=== PATIENT | male | born 1955 | race Caucasian/White ===

== ENCOUNTER 2023-06-27 14:18 | Outpatient (AMB) | payer MEDICARE, OTHER, SELFPAY ==
--- NOTE | 2023-06-27 14:53 | MHC.OFFWIV ---
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 Patient has history of this dosing using his ears cleaned every Once in a while denies other symptoms Review of Systems Const All systems reviewed & are unremarkable except as noted in HPI and below ENT Details: ear fullness Physical Exam Vital Signs: Last Vital Signs Pulse 60 06/27/23 14:55 BP 110/72 06/27/23 14:55 Pulse Ox 96 06/27/23 14:55 Oxygen Delivery Method Room Air 06/27/23 14:55 BMI result Body Mass Index 25.0 HEENT Other: unable to visualize TM cerumen impacted bilaterally Assessment & Plan Assessment & Plan (1) Cerumen impaction: Code(s): H61.20 - Impacted cerumen, unspecified ear Qualifiers: Laterality: bilateral Qualified Code(s): H61.23 - Impacted cerumen, bilateral Plan cerumen impaction bilaterally. Ears flushed TMs reassessed and able to visualize patient with improvement. Discharge instructions, follow up and treatment are discussed with patient in my usual fashion. Alternatives in treatment are also discussed. The patient will return for worsening symptoms or as needed. Advised that any labs/imaging ordered will be followed up on and contact made if further treatment needed. Counseled that patient's condition may require further evaluation and/or treatment. Symptoms of concern for worsening disorder discussed in detail in my customary manner. Patient does verbalize understanding of the plan, there are no apparent barriers to communication. The patient is given the opportunity to ask questions and have them answered to his/her satisfaction Coding Level of Care Code New Pt Level 4 (83948) Diagnoses Bilateral impacted cerumen H61.23 Laterality: bilateral
[2023-06-27 14:55] VITALS: BP 110/72; PULSE 60; O2SAT 96; BMI 25.0
== END 2023-06-27 15:15 | disposition home or self-care (01) ==
PROVIDERS: Visit Provider Physician Assistant
DX: H61.23 Impacted cerumen, bilateral (principal)
CPT/HCPCS: 99204

== ENCOUNTER 2023-07-24 14:20 | Emergency (ER) | payer MEDICARE, OTHER, SELFPAY ==
--- NOTE | ~2023-07-24 | XR_ITS ---
EXAMINATION: XR CHEST CLINICAL INFORMATION: Dyspnea COMPARISON: None available. TECHNIQUE: Frontal view of the chest was obtained. FINDINGS: Lungs grossly clear given portable technique. Heart size normal with normal caliber pulmonary vessels. No evidence for congestive failure. Sternal wires present. Advanced degenerative changes in both shoulder joints. Chronic resorptive change in the right AC joint. XR/XR chest 1V IMPRESSION: No active disease.
[2023-07-24 14:27] VITALS: BP 100/80; BP 117/72; PULSE 70; PULSE 73; RESP 18; TEMP 36.6; O2SAT 96; O2SAT 97; BMI 24.1
--- NOTE | 2023-07-24 14:35 | ECG_ITS ---
Test Reason : DYSPNEA Blood Pressure : / mmHG Vent. Rate : 068 BPM Atrial Rate : 068 BPM P-R Int : 142 ms QRS Dur : 084 ms QT Int : 396 ms P-R-T Axes : 052 017 011 degrees QTc Int : 421 ms Normal sinus rhythm Normal ECG No previous ECGs available Referred By: Becca Vargas Electronically Signed By:DELMI JEAN
--- NOTE | 2023-07-24 14:36 | ED_ITS ---
HPI - URI/Sore Throat General Chief Complaint: Upper Respiratory Symptoms Stated Complaint: +COVID,DIFF BREATHING Time Seen by Provider: 07/24/23 14:22 Source: patient Mode of arrival: EMS Limitations: no limitations History of Present Illness HPI Narrative: 68 yo male with PMH of HTN, s/p valve replacement, afib on eliquis, HLD here with c/o having a cold for many weeks with cough, runny nose, itchy eyes his told him to take a covid test though no real change in symptoms and he was positive two days ago. He has no fevers, chest pain or trouble breathing. He is not on paxlovid he has had 5 COVID shots. His home O2 reader without symptoms showed a sat of 89% around 1230pm today and his doctor told him to get checked out. EMS found patient 96% RA. MD elicited complaint: other (low O2) Pertinent past history: other Onset (ago): hour(s) (1230pm) Consistency: improved Severity: mild Description of mucous: clear Able to tolerate fluids by mouth: Yes Exacerbating factors: nothing Relieving factors: nothing Associated symptoms: denies other symptoms Treatments prior to arrival: none Related Data Home Medications Medication Instructions Recorded Confirmed amlodipine 10 mg tablet 10 mg PO DAILY 06/27/23 apixaban 5 mg tablet (Eliquis) 5 mg PO BID 06/27/23 aspirin 81 mg tablet,delayed 81 mg PO DAILY 06/27/23 release atorvastatin 80 mg tablet 80 mg PO DAILY 06/27/23 lisinopril 40 mg tablet 40 mg PO DAILY 06/27/23 metoprolol succinate 50 mg 50 mg PO DAILY 06/27/23 tablet,extended release 24 hr Allergies Allergy/AdvReac Type Severity Reaction Status Date / Time heparin AdvReac Severe Unknown Verified 07/24/23 14:31 amiodarone AdvReac Mild Unknown Verified 07/24/23 14:31 Review of Systems 2 Review of Systems: Constitutional : No Fever, No Chills ENT/Mouth : No sore throat, pos Rhinorrhea, No Swallowing Difficulty Eyes: No Eye Pain, No Swelling, No Redness Cardiovascular : No Chest Pain, no SOB, No Orthopnea, no Edema Respiratory : pos Cough, No Sputum, No Wheezing, no dyspnea Gastrointestinal : No Nausea, No Vomiting, No Diarrhea, No abdominal Pain, No Hematochezia, No Melena Genitourinary : No Dysuria, No Urinary Frequency, No Hematuria Musculoskeletal : No joint pain, No Myalgias Skin : No Skin Lesions, No rash Neuro : No Weakness, No Numbness, No Dizziness, No Headache Psych : No Anxiety/Panic, No Depression All other systems reviewed and are negative [facility] Past Medical History Attestation statement: The following information was validated with the patient. Source: old records reviewed Medical History HTN (hypertension) Social History Social History Patient Tobacco Use Status: Never used Tobacco Advance Directives: No Physical Exam 2 Vital Signs: Vital Signs: Last Vital Signs Temp 97.8 F 07/24/23 14:27 Pulse 73 07/24/23 14:27 Resp 18 07/24/23 14:27 BP 117/72 07/24/23 14:27 Pulse Ox 97 07/24/23 14:27 O2 Del Method Room Air 07/24/23 14:27 BMI result Body Mass Index 24.1 Appearance: Alert. Oriented X3. No acute distress. Eyes: Pupils equal, round and reactive to light. ENT: Pharynx normal. Neck: Normal inspection. Neck supple. CVS: Normal heart rate and rhythm. Pulses normal. Respiratory: No respiratory distress. Breath sounds normal. Abdomen: Soft and nontender. Skin: Skin warm and dry. Normal skin color. Normal skin turgor. Extremities: No lower extremity edema. No calf ttp Neuro: Oriented X 3. No motor deficit. No sensory deficit. Course Course Course Narrative: 96-98% on RA with ambulation trial Medical Decision Making Medical Decision Making MDM Narrative: 68 yo male with PMH of HTN, s/p valve replacement, afib on eliquis, HLD here with URI symptoms for weeks and off handedly took a COVID test without sig change in symptoms so there is no known real window. He has no CP/SOB edema and he is already on DOAC. At home reading said 89% without symptoms but EMS and here he is 96%. He is not toxic and has clear lungs - will obtain basic labs, EKG and CXR I suspect he will not be hypoxic here and will do ambulation trial. He is not a candidate for paxlovid I do not have a window. He has had 5 covid vaccines Differential Diagnosis Differential Diagnoses: The differential diagnosis associated with the presentation includes viral syndrome, error in O2 reader Admission/Observation Consideration of admission/observation: Escalation of care including admission/observation considered not toxic, stable for DC, no hypoxia Lab Data [facility] Lab Attestation statement: I reviewed the patient's lab results. 07/24/23 15:12 07/24/23 15:12 Labs: Lab Results 07/24/23 Range/Units 15:12 WBC 8.2 (4.8-10.8) X10*3/uL RBC 4.64 (4.60-5.80) X10*6/uL Hgb 13.4 L (14.0-18.0) g/dl Hct 39.8 L (42.0-52.0) % MCV 85.8 (80.0-98.0) fL MCH 28.9 (27.0-33.0) pg MCHC 33.7 (31.0-36.0) g/dl RDW 12.8 (11.0-16.0) % Plt Count 156 L (160-400) X10*3/uL MPV 9.4 (9.4-12.4) fL Immature Gran % (Auto) 0.2 (0.0-0.4) % Neut % (Auto) 63.0 (45-73) % Lymph % (Auto) 16.2 L (20-40) % [place] % (Auto) 18.1 H (2-11) % Eos % (Auto) 2.1 (0-4) % Baso % (Auto) 0.4 (0-2) % Lymph # (Auto) 1.3 (1.2-4.9) X10*3/uL [place] # (Auto) 1.5 H (0.1-1.2) X10*3/uL Eos # (Auto) 0.2 (0.0-0.4) X10*3/uL Baso # (Auto) 0.0 (0.0-0.2) X10*3/uL Abs Immat Gran (auto) 0.02 (0.00-0.03) X10*3/uL Absolute Neuts (auto) 5.2 (2.0-8.3) x10*3/uL Absolute Nucleated RBC 0.000 (0.0-0.012) X10*3/uL Nucleated RBC % (auto) 0.0 (0.0-0.2) /100WBC Sodium 141 (135-145) mmol/L Potassium 4.1 (3.3-5.1) mmol/L Chloride 102 (96-108) mmol/L Carbon Dioxide 28 (22-29) mmol/L Anion Gap 15 (12-20) BUN 17 H (9-16) mg/dL Creatinine 0.83 (0.5-1.4) mg/dL Estim Creat Clear Calc 85.5 Estimated GFR > 60 Random Glucose 94 (60-115) mg/dL Calcium 9.2 (8.4-10.2) mg/dL B-Natriuretic Peptide 86 (<100) pg/mL COVID-19 (ERIC) Positive A (Negative) COVID-19 Clin Com See Note Independent Interpretation I performed an independent interpretation of an: EKG and Plain X-Ray (normal ) Interpretation: Rate: 68 Rhythm: NSR [place]: normal Normal P waves. Normal OSVALDO. Normal QRS complex. ST T wave : no AKREN, inverted t wave III qTC: normal prior studies: no acute ischemia The study has been interpreted contemporaneously by me. . Radiology Impression Discussion of test interpretation with radiology: I have reviewed the radiologist's reading. Prescription Management I considered prescription management with: Antiviral (unknown window to start paxlovid so it was held) Discharge Plan Discharge Clinical Impression: COVID-19 Patient Disposition: Home, Self-Care Instructions: COVID-19 (Coronavirus Disease 2019) (ED) Additional Instructions: return for chest pain, difficulty breathing to the point you cannot walk or go to your bathroom, dizziness, fainting or any other concerns. given we cannot pinpoint your timeline of symptoms you are not a candidate for paxlovid. Prescriptions: No Action metoprolol succinate 50 mg tablet extended release 24 hr 50 mg PO DAILY atorvastatin 80 mg tablet 80 mg PO DAILY lisinopril 40 mg tablet 40 mg PO DAILY amlodipine 10 mg tablet 10 mg PO DAILY Eliquis 5 mg tablet 5 mg PO BID aspirin 81 mg tablet,delayed release (DR/EC) 81 mg PO DAILY Interventions: ED Discharge Assessment Last Done: 07/24/23 17:14 Discharge Date/Time: 07/24/23 17:14
--- OUTSIDE RECORDS SUMMARY | 2023-07-24 14:41 | XMS_ITS | Continuity of Care Document ---
Author Name Unknown Organization [facility] Adult Address [address] [place] [address]- Care Team Providers Care Rubbish Collector Name Role Phone Floyd CODY, Taylor Primary Care Physician [facility]counter [facility] Date(s): 10/15/19 - 10/25/19 [facility] [address] [place] [phone]- [facility] Attending Physician: Admtr, Ar8 Allergies, Adverse Reactions, Alerts Substance Reaction Severity Status amiodarone Active heparin Active Dust Active Ragweed Active Immunizations Given and Recorded Vaccine Date Status Refusal Reason pneumococcal 13-valent vaccine 09/23/18 Given influenza virus vaccine, inactivated 1 07/21/18 Gi lia influenza virus vaccine, inactivated 2 09/24/17 Gi lia influenza virus vaccine, inactivated 3 09/27/16 Gi lia influenza virus vaccine, inactivated 4 01/12/16 Gi lia influenza virus vaccine, inactivated 5 08/08/14 Gi lia influenza virus vaccine, inactivated 6 08/04/13 Gi lia influenza virus vaccine, inactivated 7 08/03/12 Gi lia influenza virus vaccine, inactivated 8 07/24/11 Gi lia influenza virus vaccine, inactivated 9 09/01/09 Gi lia tetanus/diphtheria/pertussis, acel(Tdap) 04/03/15 Given Zostavax (oldterm) 10 09/08/14 Given Diphth-Tetanus Toxoids Adsorbed(oldterm) 05/09/06 Given Not Given Vaccine Date Status Refusal Reason pneumococcal 23-valent vaccine 12/10/15 Not Given Patient Refuses 1Result Comment: [08/04/2018] Administered at [facility] 2Result Comment: [id number] 3Admin Note: [facility] 4Admin Note: [facility] 5Admin Note: [facility] [place] 6Admin Note: [place] 7Admin Note: [place] 8Admin Note: given at [facility] on 07-21-11 9Admin Note: [facility] [place] 10Admin Note: No insurance coverage Medications amLODIPine 10 mg oral tablet 10 mg, 1, tablet, By Mouth, Daily, # 90 tablet, Refills 3, Tot. Refills 3, Maintenance, 03/27/17 9:47:26, Do Not Route Start Date: 03/27/17 Stop Date: 03/22/18 Status: Ordered aspirin 81 mg oral tablet, chewable 81 mg, 1, tablet, By Mouth, Daily, # 30 tablet, Refills 5, Tot. Refills 5, Maintenance, 01/13/16 7:23:26, Do Not Route Start Date: 01/13/16 Stop Date: 07/11/16 Status: Ordered atorvastatin 40 mg oral tablet 1 tablet = 40 mg, By Mouth, Daily, # 90 tablet, 0 Refills, Maintenance, Tablet, Do Not Route Start Date: 03/27/17 Status: Ordered Eliquis 5 mg oral tablet 1 tablet = 5 mg, By Mouth, 2 times a day, 0 Refills, Maintenance, 05/19/18 9:58:34 EDT Start Date: 05/19/18 Status: Ordered lisinopril 40 mg oral tablet 1 tablet = 40 mg, By Mouth, Daily, # 90 tablet, 3 Refills, Maintenance, 01/09/17 12:57:25, Tablet Start Date: 01/09/17 Stop Date: 01/04/18 Status: Ordered metoprolol 50 mg oral tablet, extended release 50 mg, 1, tablet, By Mouth, Daily, # 90 tablet, Refills 1, Tot. Refills 1, Maintenance, 01/09/17 12:56:38, Do Not Route Start Date: 01/09/17 Stop Date: 07/08/17 Status: Ordered Vitamin D3 50,000 intl units oral capsule 1 capsule = 50,000 International_Units, By Mouth, Every week, # 13 capsule, 3 Refills, Maintenance,05/19/18 9:23:30 EDT, Capsule Start Date: 05/19/18 Stop Date: 05/14/19 Status: Ordered Problem List Condition Effective Dates Status Health Status Inform ant Allergic rhinitis(Confirmed) Active Aortic stenosis, severe(Confirmed) Active Atrial fibrillation, current ly in sinus rhythm(Confirmed) Active Cancer of prostate(Confirmed) Active CVA (cerebrovascular accident)(Confirmed) 1 Active Erectile dysfunction(Confirmed) Active Anticoagulant long-term use(Confirmed) Active History of - asbestos exposure(Confirmed) Active Hypercholesterolemia(Confirmed) Active 1MCA left Social History Social History Type Response Smoking Status Never smoker entered on: 04/03/15 Sex
--- OUTSIDE RECORDS SUMMARY | 2023-07-24 14:41 | XMS_ITS | Continuity of Care Document ---
Author Name Unknown Organization [facility] Address [address] [place] [address]- Care Team Providers Care Fish Receiver Name Role Phone Floyd CODY, Taylor Primary Care Physician [phone] Encounter [facility] Date(s): 02/04/23 - 02/11/23 [facility] [address] [place] [phone]- Attending Physician: Not on Staff, Attending MD Allergies, Adverse Reactions, Alerts Substance Reaction Severity Status amiodarone Active heparin Active Dust Active Ragweed Active Immunizations Given and Recorded Vaccine Date Status Refusal Reason SARS-CoV-2 (COVID-19) mRNA-1273 vaccine 01/11/21 G iven SARS-CoV-2 (COVID-19) mRNA-1273 vaccine 12/14/20 G iven influenza virus vaccine, inactivated 1 08/02/20 Re corded influenza virus vaccine, inactivated 2 07/21/18 Gi lia influenza virus vaccine, inactivated 3 09/24/17 Gi lia influenza virus vaccine, inactivated 4 09/27/16 Gi lia influenza virus vaccine, inactivated 5 01/12/16 Gi lia influenza virus vaccine, inactivated 6 08/08/14 Gi lia influenza virus vaccine, inactivated 7 08/04/13 Gi lia influenza virus vaccine, inactivated 8 08/03/12 Gi lia influenza virus vaccine, inactivated 9 07/24/11 Gi lia influenza virus vaccine, inactivated 10 09/01/09 G iven pneumococcal 13-valent vaccine 09/23/18 Given tetanus/diphtheria/pertussis, acel(Tdap) 04/03/15 Given Zostavax (oldterm) 11 09/08/14 Given Diphth-Tetanus Toxoids Adsorbed(oldterm) 05/09/06 Given Not Given Vaccine Date Status Refusal Reason pneumococcal 23-valent vaccine 12/10/15 Not Given Patient Refuses 1Result Comment: received at [facility] 2Result Comment: [08/04/2018] Administered at [facility] 3Result Comment: [id number] 4Admin Note: [facility] 5Admin Note: [facility] 6Admin Note: [facility] 7Admin Note: [place] 8Admin Note: [place] 9Admin Note: [facility] 10Admin Note: [facility] 11Admin Note: No insurance coverage Medications amLODIPine 10 [...] Date: 01/09/17 Stop Date: 07/08/17 Status: Ordered Problem List Condition Confirmation Course Effective Dates Status Health Status Informant Allergic rhinitis Confirmed Active Aortic stenosis, severe Confirmed Active Atrial fibrillation 1 Confirmed Active Atrial fibrillation, currently in sinus rhythm Confirmed Active Cancer of prostate Confirmed Active CVA (cerebrovascular accident) 2 Confirmed Active Coronary artery disease Confirmed Active Erectile dysfunction Confirmed Active Anticoagulant long-term use Confirmed Active History of - asbestos exposure Confirmed Active Aortic valve replaced Confirmed Active Hypercholesterolemia Confirmed Active Hypertension Confirmed Active 1post op 2MCA left Vital Signs Most recent to oldest [Reference Range]: 1 Height 173.8 cm (02/04/23 4:17 PM) Weight 83.2 kg (02/04/23 4:17 PM) Oxygen Saturation [94-100 %] 98 % (02/04/23 4:17 PM) Pulse Rate [55-90 bpm] 67 bpm (02/04/23 4:17 PM) Body Mass Index [18.5-24.99 kg/m2] 27.54 kg/m2 *H* (02/04/23 4:17 PM) Blood Pressure [90-138/55-84 mm Hg] 109/ 63mm Hg (02/04/23 4:17 PM) Temperature [96.8-100.4 DegF] 98.1 DegF (02/04/23 4:17 PM) Mode of Delivery (Oxygen) Room air (02/04/23 4:17 PM) Blood pressure sites Arm, left (02/04/23 4:17 PM) Temperature Route Oral (02/04/23 4:17 PM) Weight Obtained Via Standing scale (02/04/23 4:17 PM) Social History Social History Type Response Smoking Status Never smoker entered on: 04/03/15 Sex Note * Tegan Winslow: PERFORM, SIGN, VERIFY Event Display: Patient Education/Instruction Authored Date: [id number] [facility] *[facility] [place] [facility] Clinical Summary Name JG PASTRANA Age 67 Years 1955 PCP Floyd CODY, [id number] Visit Date 02/04/2023 16:09:00 Additional Instructions: Scheduled Appointments?? Future Appointments ?No Future Appointments Scheduled Follow-Up Instructions ?? Diagnosis Medications: Please continue your medications until treatment is completed or stopped by your provider. Discuss any questions related to medications with your provider. Medications to Continue with No Changes These medications were not printed or sent to your pharmacy Amlodipine (amLODIPine 10 mg oral tablet) 1 tab(s) Oral Daily for 90 Days. Refills: 3. Next Dose: apixaban (Eliquis 5 mg oral tablet) 1 tab(s) Oral twice a day. Next Dose: Aspirin (aspirin 81 mg oral tablet, chewable) 1 tab(s) Oral Daily for 30 Days. Refills: 5. Next Dose: Atorvastatin (atorvastatin 40 mg oral tablet) 1 tab(s) Oral Daily. Refills: 0. Next Dose: Lisinopril (lisinopril 40 mg oral tablet) 1 tab(s) Oral Daily for 90 Days. Refills: 3. Next Dose: Metoprolol (metoprolol 50 mg oral tablet, extended release) 1 tab(s) Oral Daily for 90 Days. Refills: 1. Next Dose: Allergy Info:?? Ragweed; Dust; heparin; amiodarone Medications Given This Visit Future Orders ?No future orders Vital Signs Height 173.8 cm Weight 83.2 kg BMI 27.54 kg/m2 Blood Pressure 109 mm Hg/63 mm Hg Temperature 98.1 DegF Pulse Rate 67 bpm Respiratory Rate 02 Sat Mode of Delivery 98 %/Room air You can now view a summary of your hospital visit from the comfort of your home through a free online portal called [employer]. [employer] is a website that allows you to securely view your medical information including discharge summary, medications and follow-up visits. ??You can alsosend a secure electronic message to your doctor???s office to request appointments, renew medications or just ask a question. You can enroll at [email or web address] or register during your next office visit. Disclaimer:?? The information provided is of a general nature and is intended to be used in conjunction with the recommendations and advice of your health care practitioner. ??Every effort has been made to ensure that the information provided is accurate and complete at the time it is provided to you however, as your needs change, or, as new ??information becomes available, different or additional instructions may be required. If you have questions, please consult with your primary care provider or pharmacist, as appropriate. ??This information is not intended to serve as substitution for assessment and evaluation by a qualified health care provider. If you do not have a primary care provider, you may find a [facility] provider by calling [facility] at [phone]. For information about the plan of care including goals and instructions for your diagnosis, please see the patient education orders section of this document. Patient Education Materials?? The content of this educational material or handout may have been modified, supplemented, or adapted from its original content and format to support your individualized medical care. Patient Care team information Care Team Personnel Name: Taylor Barrientos NP Position: [facility] PCO Associate Professional Member Role: PCP Address: Address: [address] [place] [address], [address] [place] [address]- Name: Anabela Alva RN Position: Charo RN Supv Member Role: Primary Care Nurse Care Team Related Persons Name: PEDRO PASTRANA Address: home UNKNOWN Name: RAJESH PASTRANA Address: home [address] [place] [id number]
--- OUTSIDE RECORDS SUMMARY | 2023-07-24 14:41 | XMS_ITS | Continuity of Care Document ---
Author Name Unknown Organization [facility] Adult Address [address] [place] [address]- Care Team Providers Care Rink Rat Name Role Phone Taylor Barrientos NP Primary Care Physician Encounter [facility] Date(s): 04/06/20 - 05/06/20 [facility] [address] [place] [address]- [facility] Attending Physician: Admtr, Autumn Allergies, Adverse Reactions, Alerts Substance Reaction Severity [...] Patient Refuses 1Result Comment: [08/04/2018] Administered at [facility] 2Result Comment: [id number] 3Admin Note: [facility] 4Admin Note: [facility] 5Admin Note: [facility] 6Admin Note: [place] 7Admin Note: [place] 8Admin Note: given at [facility] on 07-21-11 9Admin Note: [facility] 10Admin Note: No insurance coverage Medications amLODIPine [...] Date: 01/09/17 Stop Date: 07/08/17 Status: Ordered Vestibular Physical Therapy Vestibular Physical Therapy, See Instructions, # 1 Unknown, Refills 0, Tot. Refills 0, Maintenance,Vestibular Physical Therapy for vestibular labrynthitis, 04/04/20 16:07:00 EDT, Supply Start Date: 04/04/20 Status: Ordered Problem List Condition Effective Dates Status Health Status Inform ant Allergic rhinitis(Confirmed) Active Aortic stenosis, severe(Confirmed) Active Atrial fibrillation(Confirmed) 1 Active Atrial fibrillation, current ly in sinus rhythm(Confirmed) Active Cancer of prostate(Confirmed) Active CVA (cerebrovascular accident)(Confirmed) 2 Active Coronary artery disease(Confirmed) Active Erectile dysfunction(Confirmed) Active Anticoagulant long-term use(Confirmed) Active History of - asbestos exposure(Confirmed) Active Aortic valve replaced(Confirmed) Active Hypercholesterolemia(Confirmed) Active Hypertension(Confirmed) Active 1post op 2MCA left Social History Social History Type Response Smoking Status Never smoker entered on: 04/03/15 Sex
--- OUTSIDE RECORDS SUMMARY | 2023-07-24 14:41 | XMS_ITS | Continuity of Care Document ---
Author Name Unknown Organization [facility] ter Address [address] [place] [address]- Care Team Providers Care Air Force Pilot Name Role Phone Floyd CODY, Taylor Primary Care Physician [phone] Encounter [facility] Date(s): 04/04/20 - 04/04/[address] [address]- [facility] Discharge Disposition: A-D/C Home Attending Physician: Boni HAY, Rogelio Stevens Admitting Physician: Karen Champagne MD Referring Physician: Not on Staff, Referring MD Allergies, Adverse Reactions, Alerts Substance Reaction [...] Patient Refuses 1Result Comment: [08/04/2018] Administered at [facility] Comment: [phone] 3Admin Note: [facility] 4Admin Note: [facility] 5Admin Note: [facility] 6Admin Note: [place] 7Admin Note: [place] 8Admin Note: given at [facility] on 07-21-11 9Admin Note: [facility] 10Admin Note: No insurance coverage Medications amLODIPine [...] Date: 01/09/17 Stop Date: 01/04/18 Status: Ordered meclizine 12.5 mg oral tablet 2 tablet = 25 mg, By Mouth, 3 times a day, PRN Dizziness, for 5 days, # 20 tablet, 0 Refills, Acute04/09/20 15:55:00 EDT, 04/04/20 15:55:00 EDT, Tablet, [facility], 178, cm, 04/04/20 14:54:00 EDT, Height, 84, kg, 04/04/20 1:50:00 EDTObdulio. Start Date: 04/04/20 Stop Date: 04/09/20 Status: Ordered metoprolol 50 mg oral tablet, extended release 50 mg, 1, tablet, By Mouth, Daily, # 90 tablet, Refills 1, Tot. Refills 1, Maintenance, 01/09/17 12:56:38, Do Not Route Start Date: 01/09/17 Stop Date: 07/08/17 Status: Ordered predniSONE 10 mg oral tablet See Instructions, day 1-5: take 3 (20mg) day 6: 5 (10mg) day 7: 4 (10mg) day 8: 3 (10mg) day 9: take 2 (10mg) day 10: 1 (10 mg), # 15 tablet, 0 Refills, Acute 04/14/20 0:00:00 EDT, 04/10/20 8:00:00 EDT, Tablet, [facility], 178,... Start Date: 04/10/20 Stop Date: 04/14/20 Status: Ordered predniSONE 20 mg oral tablet 3 tablet = 60 mg, By Mouth, Daily, for 5 days, # 15 tablet, 0 Refills, Acute 04/09/20 15:57:00 EDT,04/04/20 15:57:00 EDT, Tablet, [facility], 178, cm, 04/04/20 14:54:00 EDT, Height, 84, kg, 04/04/20 1:50:00 EDT, Dry Weight Start Date: 04/04/20 Stop Date: 04/09/20 Status: Ordered Vestibular Physical Therapy Vestibular Physical [...] Active Hypertension(Confirmed) Active 1post op 2MCA left Vital Signs Most recent to oldest [Reference Range]: 1 2 3 4 Height 178 cm (04/04/20 12:54 PM) 178 cm (04/04/20 8:12 AM) 178 cm (04/04/20 5:42 AM) Weight 84.2 kg (04/04/20 2:04 AM) 84 kg (04/04/20 1:50 AM) Oxygen Saturation [94-100 %] 97 % (04/04/20 12:54 PM) 96 % (04/04/20 8:12 AM) 96 % (04/04/20 5:42 AM) Pulse Rate [55-90 bpm] 71 bpm (04/04/20 12:54 PM) 74 bpm (04/04/20 9:10 AM) 74 bpm (04/04/20 8:12 AM) Body Mass Index [18.5-24.99] 26.51 *H* (04/04/20 1:50 AM) Blood Pressure [90-138/55-84 mm Hg] 125/75mm Hg (04/04/20 12:54 PM) 131/81mm Hg (04/04/20 9:10 AM) 131/81mm Hg (04/04/20 9:10 AM) 131/81mm Hg (04/04/20 9:10 AM) Respiratory Rate [16-30 br/min] 19 br/min (04/04/20 12:54 PM) 20 br/min (04/04/20 8:12 AM) 16 br/min (04/04/20 5:42 AM) Temperature [96.8-100.4 DegF] 98.2 DegF (04/04/20 12:54 PM) 98.3 DegF (04/04/20 8:12 AM) 97.8 DegF (04/04/20 5:42 AM) Mode of Delivery (Oxygen) Room air (04/04/20 12:54 PM) Room air (04/04/20 8:12 AM) Room air (04/04/20 5:42 AM) Blood pressure sites Arm, left (04/04/20 12:00 PM) Arm, left (04/04/20 8:12 AM) Arm, right (04/04/20 5:42 AM) Temperature Route Oral (04/04/20 12:54 PM) Oral (04/04/20 8:12 AM) Oral (04/04/20 5:42 AM) Dry Weight 84 kg (04/04/20 1:50 AM) Weight Obtained Via Bed scale (04/04/20 2:04 AM) Social History Social History Type Response Smoking Status Never smoker entered on: 04/03/15 Sex
--- OUTSIDE RECORDS SUMMARY | 2023-07-24 14:41 | XMS_ITS | Continuity of Care Document ---
Author Name Unknown Organization [facility] Adult Address [address] [place] [address]- Care Team Providers Care Case Managers Name Role Phone Taylor Barrientos NP Primary Care Physician [phone] Encounter [facility] [place] Date(s): 02/25/23 - 04/03/23 [facility] [address] [place] [address]- Attending Physician: Not on Staff, Attending MD Allergies, Adverse Reactions, Alerts Substance Reaction Severity Status amiodarone Active heparin Active Dust Active Ragweed Active Immunizations Given and Recorded Vaccine Date Status Refusal Reason influenza virus vaccine, inactivated 08/28/22 Roshan rded influenza virus vaccine, inactivated 1 08/02/20 Re corded influenza virus vaccine, inactivated 2 07/21/18 Gi lia influenza virus vaccine, inactivated 3 09/24/17 Gi lia influenza virus vaccine, inactivated 4 09/27/16 Gi lia influenza virus vaccine, inactivated 09/26/16 [place]han rded influenza virus vaccine, inactivated 5 01/12/16 Gi lia influenza virus vaccine, inactivated 6 08/08/14 Gi lia influenza virus vaccine, inactivated 7 08/04/13 Gi lia influenza virus vaccine, inactivated 8 08/03/12 Gi lia influenza virus vaccine, inactivated 9 07/24/11 Gi lia influenza virus vaccine, inactivated 10 09/01/09 G iven [id number] bivalent booster vax 08/28/22 Recorded SARS-CoV-2 (COVID-19) mRNA-1273 vaccine 03/12/22 R ecorded SARS-CoV-2 (COVID-19) mRNA-1273 vaccine 08/15/21 R ecorded SARS-CoV-2 (COVID-19) mRNA-1273 vaccine 01/11/21 G iven SARS-CoV-2 (COVID-19) mRNA-1273 vaccine 2/24/21 G iven zoster vaccine, inactivated 06/23/21 Recorded zoster vaccine, inactivated 04/20/21 Recorded pneumococcal 13-valent vaccine 09/23/18 Given tetanus/diphtheria/pertussis, acel(Tdap) 04/03/15 Given Zostavax (oldterm) 11 09/08/14 Given Diphth-Tetanus Toxoids Adsorbed(oldterm) 05/09/06 Given Not Given Vaccine Date Status Refusal Reason pneumococcal 23-valent vaccine 12/10/15 Not Given Patient Refuses 1Result Comment: received at [facility] 2Result Comment: [08/04/2018] Administered at [facility] 3Result Comment: [id number] 4Ain Note: [facility] 5Ain Note: [facility] 6Ain Note: [facility] 7Admin Note: [place] 8Admin Note: [place] 9Admin Note: given at [facility] on 07-21-11 10Admin Note: [facility] 11Ain Note: No insurance coverage Medications amLODIPine 10 [...] Hypertension Confirmed Active 1post op 2MCA left Social History Social History Type Response Smoking Status Never smoker entered on: 04/03/15 Sex Patient Care team information Care Team Personnel Name: Taylor Barrientos NP Position: [facility] PCO Associate Professional Member Role: PCP Address: Address: [address] [place] [address], [address] [place], [place] [address] Name: Anabela Alva RN Position: [facility] RN Supv Member Role: Primary Care Nurse Care Team Related Persons Name: PEDRO PASTRANA Address: home UNKNOWN Name: RAJESH PASTRANA Address: home [address] [place] [address]
--- OUTSIDE RECORDS SUMMARY | 2023-07-24 14:41 | XMS_ITS | Continuity of Care Document ---
Author Name Unknown Organization [facility] Adult Address [address] [place] [address]- Care Team Providers Care Return Agent Airport Name Role Phone Taylor Barrientos NP Primary Care Physician [phone] [facility] Date(s): 02/26/23 - 03/28/23 [facility] Adult [address] [place] [address]- Allergies, Adverse Reactions, Alerts Substance Reaction Severity [...] virus vaccine, inactivated 10 09/01/09 G iven [id number] bivalent booster vax 08/28/22 Recorded SARS-CoV-2 (COVID-19) mRNA-1273 vaccine 03/12/22 R ecorded SARS-CoV-2 (COVID-19) mRNA-1273 vaccine 08/15/21 R ecorded SARS-CoV-2 (COVID-19) mRNA-1273 vaccine 01/11/21 G iven SARS-CoV-2 (COVID-19) mRNA-1273 vaccine 12/14/20 G iven zoster vaccine, inactivated 06/23/21 Recorded zoster vaccine, inactivated 04/20/21 Recorded pneumococcal 13-valent vaccine 09/23/18 Given tetanus/diphtheria/pertussis, acel(Tdap) 04/03/15 Given Zostavax (oldterm) 11 09/08/14 Given Diphth-Tetanus Toxoids Adsorbed(oldterm) 05/09/06 Given Not Given Vaccine Date Status Refusal Reason pneumococcal 23-valent vaccine 12/10/15 Not Given Patient Refuses 1Result Comment: [facility] 2Result Comment: [08/04/2018] Administered at [facility] 3Result Comment: [id number] 4Ain Note: [facility] 5[facility] Note: [facility] 6Ain Note: [facility] 7Admin Note: [place] 8Admin Note: [place] 9Ain Note: given at [facility] on 07-21-11 10Admin Note: [facility] 11Ain Note: No insurance coverage Medications [...] Team Personnel Name: Taylor Barrientos NP Position: [facility] PCO Associate Professional Member Role: PCP Address: Address: [address] [place] [address], [address] [place], [place] [address] Name: Anabela Alva RN Position: [facility] RN Supv Member Role: Primary Care Nurse Care Team Related Persons Name: PEDRO PASTRANA Address: home UNKNOWN Name: RAJESH PASTRANA Address: home [address] [place] [address]
--- OUTSIDE RECORDS SUMMARY | 2023-07-24 14:41 | XMS_ITS | Continuity of Care Document ---
Author Name Unknown Organization [facility] Adult Address [address] [place] [address]- Care Team Providers Care Packer Operator Automatic Name Role Phone Taylor Barrientos NP Primary Care Physician [phone] [facility] Date[facility]s): 03/01/23 - 03/31/23 [facility] [address] [place] [address]- Allergies, Adverse Reactions, Alerts Substance Reaction Severity [...] virus vaccine, inactivated 10 09/01/09 G iven [id number] bivalent booster vax 08/28/22 Recorded SARS-CoV-2 (COVID-19) [...] Given Patient Refuses 1Result Comment: received at [facility] 2Result Comment: [08/04/2018] Administered at [facility] 3Result Comment: [id number] 4Ain Note: [facility]: [facility] 6Ain Note: [facility] 7Admin Note: [place] 8Admin Note: [place] 9Ain Note: given at [facility] on 07-21-11 10Admin Note: [facility] 11Ain Note: No insurance coverage Medications [...] Team Personnel Name: Taylor Barrientos NP Position: [facility] PCO Associate Professional Member Role: PCP Address: Address: [address] [facility], [address]rd [address] [place], [place] [address] Name: Anabela Alva RN Position: [facility] RN Supv Member Role: Primary Care Nurse Care Team Related Persons Name: PEDRO PASTRANA Address: home UNKNOWN Name: RAJESH PASTRANA Address: home [address] [place] [address]
--- OUTSIDE RECORDS SUMMARY | 2023-07-24 14:41 | XMS_ITS | Continuity of Care Document ---
Author Name Unknown Organization [facility] Address [address] [place] [address]- Care Team Providers Care Assistant Name Role Phone Floyd CODY, Taylor Primary Care Physician [phone] [facility] Date[facility]s): 04/06/20 - 05/11/[address] [address]- [facility] Discharge Disposition: A-D/C Home Attending Physician: Taylor Barrientos NP Admitting Physician: Floyd CODY, Taylor Referring Physician: Sweta Jensen MD Allergies, Adverse Reactions, Alerts Substance Reaction [...] Patient Refuses 1Result Comment: [08/04/2018] Administered at [facility] 2Result Comment: [phone] 3Ain Note: [facility] 4Admin Note: [facility] 5Admin Note: [facility] 6Admin Note: [place] 7Admin Note: [place] 8Admin Note: given at [facility] on 07-21-11 9Admin Note: [facility] 10Admin Note: No insurance coverage Medications [...]
--- OUTSIDE RECORDS SUMMARY | 2023-07-24 14:41 | XMS_ITS | Continuity of Care Document ---
Author Name Unknown Organization [facility] ter Address [address] [place] [address]- Care Team Providers Care Boom Stick Man Name Role Phone Floyd CODY, Taylor Primary Care Physician [facility] Date(s): 10/15/19 - 10/15/[address] [address]- [facility] Attending Physician: Taylor Barrientos NP Allergies, Adverse Reactions, Alerts Substance Reaction Severity [...] Patient Refuses 1Result Comment: [08/04/2018] Administered at [facility] 2Result Comment: [id number] 3Admin Note: [facility] 4Admin Note: [facility] 5Admin Note: [facility] 6Admin Note: [place] 7Admin Note: [place] 8Admin Note: given at [facility] on 07-21-11 9Admin Note: [facility] 10Admin Note: No insurance coverage Medications [...]
--- OUTSIDE RECORDS SUMMARY | 2023-07-24 14:41 | XMS_ITS | Continuity of Care Document ---
Author Name Unknown Organization [facility] Address [address] [address]- Care Team Providers Care Refractory Grinder Operator Name Role Phone Floyd CODY, Taylor Primary Care Physician [phone] [facility]counter [facility] Date(s): 04/18/20 - 05/18/20 [facility] [address] [address]- [facility] Allergies, Adverse Reactions, Alerts Substance Reaction Severity [...] Patient Refuses 1Result Comment: [08/04/2018] Administered at [facility] 2Result Comment: [phone] 3Admin Note: [facility] 4Admin Note: [facility] 5Admin Note: [facility] 6Admin Note: [place] 7Admin Note: [place] 8Admin Note: given at [facility] on 07-21-11 9Admin Note: [facility] 10Admin Note: No insurance coverage Medications [...]
--- OUTSIDE RECORDS SUMMARY | 2023-07-24 14:41 | XMS_ITS | Continuity of Care Document ---
Author Name Unknown Organization [facility] ter Address [address] [place] [address]- Care Team Providers Care Plate Molder Name Role Phone Devan HAY, Alec Torrez Primary Care Physician [phone] Encounter [facility] Date(s): 04/02/20 - 04/03/[address] [address]- [facility] Discharge Disposition: A-D/C Home Attending Physician: Elva Almonte DO Admitting Physician: Elva Almonte DO Referring Physician: Not on Staff, Referring MD Allergies, Adverse Reactions, Alerts Substance Reaction Severity Status amiodarone Active heparin Active Dust Active Ragweed Active Immunizations Given and Recorded Vaccine Date Status Refusal Reason pneumococcal 13-valent vaccine 09/23/18 Given influenza virus vaccine, inactivated 1 07/21/18 Gi lia influenza virus vaccine, inactivated 2 09/24/17 Gi lia influenza virus vaccine, inactivated 3 09/27/16 Gi ila influenza virus vaccine, inactivated 4 01/12/16 Gi [...] Patient Refuses 1Result Comment: [08/04/2018] Administered at [facility] 2Result Comment: [id number] 3Admin Note: [facility] 4Admin Note: [facility] 5Admin Note: [facility] 6Admin Note: [place] 7Admin Note: [place] 8Admin Note: given at [facility] on 07-21-11 9Admin Note: [facility] 10Admin Note: No insurance coverage Medications [...] asbestos exposure(Confirmed) Active Hypercholesterolemia(Confirmed) Active 1MCA left Results Radiology Reports * Exam Date Time Procedure Performing Provider Status 04/02/20 12:15 PM Chest 2 Views Frontal and Lat Zeb , [place]; Auth (Verified) Notes: (Chest 2 Views Frontal and Lat) Reason For Exam: nausea, diaphoresis, afib, valve replacement hx;Other: RESULT: Chest 2 Views Frontal and Lat Examination: Chest performed on 04/02/2020. History: Nausea. Diaphoresis. Findings: Frontal and lateral views of the chest are compared to a prior study dated 12/09/2015. Sternotomy wires and valve prosthesis are noted. The cardiac and mediastinal silhouettes are withinnormal limits. The lungs are clear. Deformity of the distal right clavicle is consistent with priortrauma. Impression: There is no acute cardiopulmonary disease. WSN: [id number] Ordering Physician: Ivy Stephenson Dictated By: Sondra Quinonez MD Dictated Date/Time: 04/02/20 12:18 p Reviewed By: Sondra Quinonez MD Signed By: Sondra Quinonez MD Signed Date/Time: 04/02/20 12:18 pm Transcribed By: SNEHAL Transcribed Date/Time: 04/02/20 12:17 pm Vital Signs Most recent to oldest [Reference Range]: 1 2 3 Height 178 cm (04/03/20 4:00 AM) 178 cm (04/02/20 11:37 PM) 178 cm (04/02/20 7:51 PM) Weight 84 kg (04/02/20 5:48 PM) 86.4 kg (04/02/20 5:31 PM) Oxygen Saturation [94-100 %] 96 % (04/03/20 11:20 AM) 98 % (04/03/20 7:40 AM) 97 % (04/03/20 4:00 AM) Pulse Rate [55-90 bpm] 96 bpm *H* (04/03/20 11:20 AM) 79 bpm (04/03/20 8:20 AM) 95 bpm *H* (04/03/20 7:40 AM) Body Mass Index [18.5-24.99] 26.51 *H* (04/02/20 5:48 PM) Blood Pressure [90-138/55-84 mm Hg] 133/86mm Hg (04/03/20 11:20 AM) 130/82mm Hg (04/03/20 8:20 AM) 133/83mm Hg (04/03/20 7:40 AM) Respiratory Rate [16-30 br/min] 20 br/min (04/03/20 11:20 AM) 20 br/min (04/03/20 7:40 AM) 16 br/min (04/03/20 4:00 AM) Temperature [96.8-100.4 DegF] 97.9 DegF (04/03/20 11:20 AM) 97.2 DegF (04/03/20 7:40 AM) 98.9 DegF (04/03/20 4:00 AM) Mode of Delivery (Oxygen) Room air (04/03/20 11:20 AM) Room air (04/03/20 7:40 AM) Room air (04/03/20 4:00 AM) Blood pressure sites Arm, right (04/03/20 11:20 AM) Arm, right (04/03/20 7:40 AM) Arm, right (04/03/20 4:00 AM) Temperature Route Temporal (04/03/20 11:20 AM) Temporal (04/03/20 7:40 AM) Temporal (04/03/20 4:00 AM) Dry Weight 84 kg (04/02/20 5:48 PM) Weight Obtained Via Bed scale (04/02/20 5:48 PM) Bed scale (04/02/20 5:31 PM) Dry Weight Obtained Via Bed scale (04/02/20 5:48 PM) Social History Social History Type Response Smoking Status Never smoker entered on: 04/03/15 Sex
--- OUTSIDE RECORDS SUMMARY | 2023-07-24 14:41 | XMS_ITS | Continuity of Care Document ---
Author Name Unknown Organization [facility] Adult Address [address] [place] [address]- Care Team Providers Care Mental Health Consultant Name Role Phone Taylor Barrientos NP Primary Care Physician [place] [facility] Date(s): 04/06/20 - 04/13/20 [facility] Adult [address] [place] [address]- [facility] Attending Physician: Not on Staff, Attending MD [...] Patient Refuses 1Result Comment: [08/04/2018] Administered at [facility] 2Result Comment: [phone] 3Admin Note: [facility] 4Admin Note: [facility] 5Admin Note: [facility] 6Admin Note: [place] 7Admin Note: [place] 8Admin Note: given at [facility] on 07-21-11 9Admin Note: [facility] 10Admin Note: No insurance coverage Medications [...] recent to oldest [Reference Range]: 1 Height 178 cm (04/06/20 9:36 AM) Social History Social History Type Response Smoking Status Never smoker entered on: 04/03/15 Sex
--- OUTSIDE RECORDS SUMMARY | 2023-07-24 14:41 | XMS_ITS | Continuity of Care Document ---
Author Name Unknown Organization [facility] Adult Address [address] [place] [address]- Care Team Providers Care Foreign Service Teacher Name Role Phone Taylor Barrientos NP Primary Care Physician [place] [facility] [place] 03[place]07[place]23 [place] 04/06/23 [facility] Adult [address] [place] [address]- Attending Physician: Admtr, Autumn Allergies, Adverse Reactions, [...] influenza virus vaccine, inactivated 9 07/24/11 Gi ila influenza virus vaccine, inactivated 10 09/01/09 G iven [id number] bivalent booster vax 08/28/22 Recorded SARS-CoV-2 (COVID-19) [...] Given Patient Refuses 1Result Comment: received at [facility] 2Result Comment: [08/04/2018] Administered at [facility] 3Result Comment: [phone] 4Ain Note: [facility] 5Ain Note: [facility] 6Ain Note: [facility] 7Admin Note: [place] 8Admin Note: [place] 9Admin Note: given at [facility] on 07-21-11 10Admin Note: [facility] 11Ain Note: No insurance coverage Medications [...] Status Never smoker entered on: 04/03/15 Sex Cardiology * Event Display: Non Cardiovascular Results Authored Date: * Event Display: Cardiology Office Note, Non- Authored Date: * Event Display: Cardiology Office Note, Non- Authored Date: * Event Display: Non Cardiovascular Results Authored Date: EKG study * Event Display: EKG Authored Date: Laboratory * Event Display: Laboratory Result Scanned Authored Date: * Event Display: Laboratory Result Scanned Authored Date: * Event Display: Laboratory Result Scanned Authored Date: Note * Event Display: Consult Note Cardiac Rehab Authored Date: * Event Display: Consult Note Cardiac Rehab Authored Date: * Event Display: Consult Note Cardiac Rehab Authored Date: * Event Display: Cardiac Surgery Office Note, Non- Authored Date: Cardiology Consult note * Event Display: Consult Note Cardiology Authored Date: Patient Care team information Care Team Personnel Name: Taylor Barrientos NP Position: [facility] PCO Associate Professional Member Role: PCP Address: Address: [address] [place] [address], [address] [place] [address]- Name: Nida SYLVESTER, Anabela Position: S RN Supv Member Role: Primary Care Nurse Care Team Related Persons Name: PEDRO PASTRANA Address: home UNKNOWN Name: RAJESH PASTRANA Address: home [address] [place] [address]
--- OUTSIDE RECORDS SUMMARY | 2023-07-24 14:41 | XMS_ITS | Continuity of Care Document ---
Author Name Unknown Organization [facility] Address [address] [place] [address]- Care Team Providers Care Vocational Instructor Name Role Phone Floyd CODY, Taylor Primary Care Physician [facility] Date[facility]s): 04/[facility]/20 - 05/15/20 [facility] [address] [place] [address]- [facility] Attending Physician: Autumn Ordoñez Admitting Physician: Autumn Ordoñez Referring Physician: AdmtrAutumn Allergies, Adverse Reactions, Alerts Substance Reaction Severity [...] Patient Refuses 1Result Comment: [08/04/2018] Administered at [facility] 2Result Comment: [phone] 3Admin Note: [facility] 4Admin Note: [facility] 5Admin Note: [facility] 6Admin Note: [place] 7Admin Note: [place] 8Admin Note: given at [facility] on 07-21-11 9Admin Note: [facility] 10Admin Note: No insurance coverage Medications amLODIPine [...]
--- OUTSIDE RECORDS SUMMARY | 2023-07-24 14:41 | XMS_ITS | Continuity of Care Document ---
Author Name Unknown Organization [facility] Address [address] [place] [address]- Care Team Providers Care Supervisor Phosphoric Acid Name Role Phone Taylor Barrientos NP Primary Care Physician [phone] [place] [facility] [place]/23 [facility] [address] [place] [address]- Allergies, Adverse Reactions, Alerts Substance Reaction Severity [...] virus vaccine, inactivated 10 09/01/09 G iven [id number] bivalent booster vax 08/28/22 Recorded SARS-CoV-2 (COVID-19) [...] Given Patient Refuses 1Result Comment: received at [facility] 2Result Comment: [08/04/2018] Administered at [facility] 3Result Comment: [id number] 4Ain Note: [facility] 5[facility] Note: [facility] 6Ain Note: [facility] 7Admin Note: [place] 8Admin Note: [place] 9Ain Note: given at [facility] on 07-21-11 10Admin Note: [facility] 11Ain Note: No insurance coverage Medications [...] Team Personnel Name: Taylor Barrientos NP Position: [facility] PCO Associate Professional Member Role: PCP Address: Address: [address] [place], [place] [address]R[place] Name: Anabela Alva RN Position: [facility] RN Supv Member Role: Primary Care Nurse Care Team Related Persons Name: PEDRO PASTRANA Address: home UNKNOWN Name: RAJESH PASTRANA Address: home [address] [place] [address]
--- OUTSIDE RECORDS SUMMARY | 2023-07-24 14:41 | XMS_ITS | Continuity of Care Document ---
Author Name Unknown Organization [facility] Address [address] [place] [address]- Care Team Providers Care Tank House Operator Helper Name Role Phone Floyd CODY, Taylor Primary Care Physician Encounter [facility] Date(s): 05/11/20 - 06/10/[address] [address]- [facility] Attending Physician: Autumn Ordoñez Admitting Physician: AdmtrAutumn Referring Physician: Admtr, Ar8 Allergies, Adverse Reactions, Alerts [...] Patient Refuses 1Result Comment: [08/04/2018] Administered at [facility] 2Result Comment: [id number] 3Admin Note: [facility] 4Admin Note: [facility] 5Admin Note: [facility] 6Admin Note: [place] 7Admin Note: [place] 8Admin Note: given at [facility] on 07-21-11 9Admin Note: [facility] 10Admin Note: No insurance coverage Medications amLODIPine [...]
--- OUTSIDE RECORDS SUMMARY | 2023-07-24 14:41 | XMS_ITS | Continuity of Care Document ---
Author Name Unknown Organization [facility] Address [address] [place] [address]- Care Team Providers Care Mulcher Operator Name Role Phone Taylor Barrientos NP Primary Care Physician [place] [facility] [place] 04/22/20 [facility] [address] [place] [address]- [facility] Encounter Diagnosis Pressure sensation in both ears(Discharge Diagnosis) - 04/15/20 Attending Physician: Nehal HAY, Rahul Mancilla Referring Physician: Taylor Barrientos NP Allergies, Adverse Reactions, [...] Patient Refuses 1Result Comment: [08/04/2018] Administered at [facility] 2Rult Comment: [id number] 3Admin Note: [facility] 4Admin Note: [facility] 5Admin Note: [facility] 6Admin Note: [place] 7Admin Note: [place] 8Admin Note: given at [facility] on 07-21-11 9Admin Note: [facility] [...] Date: 01/09/17 Stop Date: 07/08/17 Status: Ordered scopolamine 1 mg/72 hr transdermal film, extended release See Instructions, apply Topically behind ear, change Every 72 hours, # 2 each, 0 Refills, Acute 04/25/20 17:43:00 EDT, 04/19/20 17:42:00 EDT, [facility] #[id number], apply Topically behind ear, change Every 72 hours, 178, cm, 04/15/20 11:28:00 ED... Start Date: 04/19/20 Stop Date: 04/25/20 Status: Ordered Vestibular Physical Therapy Vestibular Physical [...] Active Hypertension(Confirmed) Active 1post op 2MCA left Diagnosis Diagnosis Type Effective Dates Health Status Cl inical Service Informant Pressure sensation in both ears Discharge Diagnosis 04/15/20 Vital Signs Most recent to oldest [Reference Range]: 1 Height 178 cm (04/15/20 11:28 AM) Oxygen Saturation [94-100 %] 98 % (04/15/20 11:28 AM) Pulse Rate [55-90 bpm] 71 bpm (04/15/20 11:28 AM) Blood Pressure [90-138/55-84 mm Hg] 127/ 78mm Hg (04/15/20 11:28 AM) Respiratory Rate [16-30 br/min] 18 br/mi n (04/15/20 11:28 AM) Temperature [96.8-100.4 DegF] 97.5 DegF (04/15/20 11:28 AM) Mode of Delivery (Oxygen) Room air (04/15/20 11:28 AM) Blood pressure sites Arm, left (04/15/20 11:28 AM) Temperature Route Temporal (04/15/20 11:28 AM) Social History Social History Type Response Smoking Status Never smoker entered on: 04/03/15 Sex
[2023-07-24 15:17] LABS: MANUAL DIFF FLAG NO
[2023-07-24 15:19] LABS: Basophils Percent Auto 0.4 % (0-2); Eosinophils Absolute Auto 0.2 X10*3/uL (0.0-0.4); Eosinophils Percent Auto 2.1 % (0-4); Hematocrit 39.8 % (42.0-52.0); Hemoglobin 13.4 g/dl (14.0-18.0); Imm Gran Abs Auto 0.02 X10*3/uL (0.00-0.03); Imm Gran Pct Auto 0.2 % (0.0-0.4); Lymphocytes Absolute Auto 1.3 X10*3/uL (1.2-4.9); Lymphocytes Percent Auto 16.2 % (20-40); Mean Corpuscular HGB Conc 33.7 g/dl (31.0-36.0); Mean Corpuscular Hemoglobin 28.9 pg (27.0-33.0); Mean Corpuscular Volume 85.8 fL (80.0-98.0); Mean Platelet Volume 9.4 fL (9.4-12.4); Monocytes Absolute Auto 1.5 X10*3/uL (0.1-1.2); Monocytes Percent Auto 18.1 % (2-11); Neutrophils Absolute Auto 5.2 x10*3/uL (2.0-8.3); Platelet Count 156 X10*3/uL (160-400); Red Blood Count 4.64 X10*6/uL (4.60-5.80); Red Cell Distribution Width 12.8 % (11.0-16.0); White Blood Count 8.2 X10*3/uL (4.8-10.8)
[2023-07-24 15:31] LABS: Anion Gap 15 (12-20); Blood Urea Nitrogen 17 mg/dL (9-16); Calcium 9.2 mg/dL (8.4-10.2); Carbon Dioxide 28 mmol/L (22-29); Chloride 102 mmol/L (96-108); Creatinine Clr Calc Pharmacy 85.5; Estimated Glomerular Filt Rate > 60; Glucose Random 94 mg/dL (60-115); Potassium 4.1 mmol/L (3.3-5.1); Sodium 141 mmol/L (135-145)
[2023-07-24 15:38] LABS: COVID-19 Test Positive (Negative); IDNOW Serial# 9DB6401D
[2023-07-24 16:08] LABS: B Type Natriuretic Peptide 86 pg/mL (<100)
== END 2023-07-24 17:14 | disposition home or self-care (01) ==
PROVIDERS: Emergency Provider Emergency Medicine
DX: U07.1 COVID-19 (principal); R06.02 Shortness of breath; Z79.899 Other long term (current) drug therapy
CPT/HCPCS: 36415; 71045; 80048; 83880; 85025; 87635; 93005; 99283

== ENCOUNTER 2024-03-07 20:36 | Emergency (ER) | payer MEDICARE, OTHER, SELFPAY ==
[2024-03-07 20:59] VITALS: BP 105/63; PULSE 77; RESP 16; TEMP 36.8; O2SAT 95; BMI 26.5
--- NOTE | 2024-03-07 21:10 | ECG_ITS ---
Test Reason : chest pain Blood Pressure : / mmHG Vent. Rate : 066 BPM Atrial Rate : 066 BPM P-R Int : 156 ms QRS Dur : 080 ms QT Int : 396 ms P-R-T Axes : 072 005 016 degrees QTc Int : 415 ms Normal sinus rhythm Normal ECG When compared with ECG of 24-JUL-2023 15:02, No significant change was found Referred By: Generic ED Physician Electronically Signed By:VICTORINA GUILLEN MD
[2024-03-07 21:27] LABS: MANUAL DIFF FLAG NO
[2024-03-07 21:30] LABS: Basophils Absolute Auto 0.1 X10*3/uL (0.0-0.2); Basophils Percent Auto 0.4 % (0-2); Eosinophils Absolute Auto 0.2 X10*3/uL (0.0-0.4); Eosinophils Percent Auto 1.4 % (0-4); Hematocrit 39.1 % (42.0-52.0); Hemoglobin 14.1 g/dl (14.0-18.0); Imm Gran Abs Auto 0.05 X10*3/uL (0.00-0.03); Imm Gran Pct Auto 0.4 % (0.0-0.4); Lymphocytes Absolute Auto 2.4 X10*3/uL (1.2-4.9); Lymphocytes Percent Auto 19.9 % (20-40); Mean Corpuscular HGB Conc 36.1 g/dl (31.0-36.0); Mean Corpuscular Hemoglobin 30.6 pg (27.0-33.0); Mean Corpuscular Volume 84.8 fL (80.0-98.0); Mean Platelet Volume 9.4 fL (9.4-12.4); Monocytes Percent Auto 8.7 % (2-11); Neutrophils Absolute Auto 8.2 x10*3/uL (2.0-8.3); Neutrophils Percent Auto 69.2 % (45-73); Platelet Count 231 X10*3/uL (160-400); Red Blood Count 4.61 X10*6/uL (4.60-5.80); Red Cell Distribution Width 12.3 % (11.0-16.0); White Blood Count 11.8 X10*3/uL (4.8-10.8)
[2024-03-07 21:36] LABS: INTERNATIONAL NORM RATIO 1.4 (0.9-1.1); Prothrombin Time 16.9 SEC (11.1-13.3)
[2024-03-07 21:41] LABS: Alanine Aminotransferase 26 U/L (0-40); Alkaline Phosphatase 64 U/L (39-117); Anion Gap 15 (12-20); Aspartate Amino Transferase 25 U/L (5-37); Bilirubin Total 0.9 mg/dL (0.0-1.0); Blood Urea Nitrogen 40 mg/dL (9-16); Calcium 8.9 mg/dL (8.4-10.2); Carbon Dioxide 26 mmol/L (22-29); Chloride 102 mmol/L (96-108); Creatinine Clr Calc Pharmacy 41.9; Estimated Glomerular Filt Rate 40; Glucose Random 142 mg/dL (60-115); Potassium 4.6 mmol/L (3.3-5.1); Sodium 138 mmol/L (135-145); Total Protein 6.8 g/dL (6.5-8.0)
[2024-03-08 00:05] VITALS: BP 105/56; PULSE 80; RESP 16; O2SAT 97
--- OUTSIDE RECORDS SUMMARY | 2024-03-08 04:19 | XMS_ITS | Continuity of Care Document ---
Author Organization [facility] Address [address] [place] [address]- Care Team Providers Care Director Manufacturing Engineering Name Role Phone Floyd CODY, Taylor Primary Care Physician Encounter [id number] Date(s): 02/28/24 - 02/28/24 [facility] [address] [place] [id number] Allergies, Adverse Reactions, Alerts Substance Reaction Severity [...] virus vaccine, inactivated 10 09/01/09 G iven [id number] bivalent booster vax 08/28/22 Recorded SARS-CoV-2 (COVID-19) mRNA-1273 vaccine 03/12/22 R ecorded SARS-CoV-2 (COVID-19) mRNA-1273 vaccine 08/15/21 R ecorded SARS-CoV-2 (COVID-19) mRNA-1273 vaccine 01/11/21 G iven SARS-CoV-2 (COVID-19) mRNA-1273 vaccine 12/14/20 G iven zoster vaccine, inactivated 06/23/21 Recorded zoster vaccine, inactivated 04/20/21 Recorded pneumococcal 13-valent vaccine 09/23/18 Given tetanus/diphtheria/pertussis, acel(Tdap) 04/03/15 Given Zostavax (oldterm) 11 09/08/14 Given Diphth-Tetanus Toxoids Adsorbed(oldterm) 05/09/06 Given 1Result Comment: [facility] at [facility] 2Result Comment: [08/04/2018] Administered at [facility] 3Result Comment: [phone] 4Ain Note: [facility]: [facility] 6Ain Note: [facility] 7Admin Note: [place] 8Admin Note: [place] 9Admin Note: given at [facility] on 07-21-11 10Admin Note: [facility] 11Ain Note: No insurance coverage Medications [...] Not Route Start Date: 03/27/17 Status: Ordered Caverject Impulse 10 mcg injection See Instructions, PRN sexual activity, 10 mcg Intradermal Daily prn sexual activity, # 15 each, 3 Refills, Maintenance, 02/28/24 14:40:00 EDT, [id number], Partial fill upon patient request if the prescription is for a schedule II opio... Start Date: 02/28/24 Status: Ordered Eliquis 5 mg oral tablet [...] 1 mg/72 hr transdermal film, extended release 1 patch, Topically, Every 72 hours, for 4 days, # 4 patch, 0 Refills, Acute 03/03/24 11:21:00 EDT, 02/28/24 11:21:00 EDT, [facility] #[id number], Partial fill upon patient request if the prescription is for a schedule II opioid drug., 1 patch Top... Start Date: 02/28/24 Stop Date: 03/03/24 Status: Ordered Problem List Condition Confirmation Course [...] Team Personnel Name: Taylor Barrientos NP Position: [facility] PCO Associate Professional Member Role: PCP Address: Address: [address] [place] [address]- Name: Anabela Alva RN Position: [facility] RN Supv Member Role: Primary Care Nurse Care Team Related Persons Name: PEDRO PASTRANA Address: home UNKNOWN Name: RAJESH PASTRANA Address: home [address] [place] [address]
--- OUTSIDE RECORDS SUMMARY | 2024-03-08 04:19 | XMS_ITS | Continuity of Care Document ---
Author Organization [facility] Address [address] [place] [id number]- Care Team Providers Care Truck Service Technician Name Role Phone Taylor Barrientos NP Primary Care Physician [phone] [place] [facility] [place]28[place]24 - 03/06/24 [facility] [address] [place] [id number]- Encounter Diagnosis Anticoagulant long-term use(Discharge Diagnosis) - 02/28/24 Cancer of prostate(Discharge Diagnosis) - 02/28/24 Hypercholesterolemia(Discharge Diagnosis) - 02/28/24 Allergic rhinitis(Discharge Diagnosis) - 02/28/24 Coronary artery disease(Discharge Diagnosis) - 02/28/24 Leucocytosis(Discharge Diagnosis) - 03/03/24 Attending Physician: Taylor Barrientos NP Allergies, Adverse [...] virus vaccine, inactivated 10 09/01/09 G iven [id number] bivalent booster vax 08/28/22 Recorded SARS-CoV-2 (COVID-19) [...] Adsorbed(oldterm) 05/09/06 Given 1Result Comment: received at [facility] 2Result Comment: [08/04/2018] Administered at [facility] 3Result Comment: [id number] 4Admin Note: [facility] 5Ain Note: [facility] 6Admin Note: [facility] 7Admin Note: [place] 8Admin Note: [place] 9Ain Note: given at [facility] on 07-21-11 10Admin Note: [facility] 11Ain Note: No insurance coverage Medications amLODIPine [...] activity, # 15 each, 3 Refills, Maintenance, 03/05/24 10:32:00 EDT, [facility] #[id number], Partial fill upon patient request if the prescription is for a schedule II opio... Start Date: 03/05/24 Status: Ordered Eliquis 5 mg oral tablet 1 tablet = 5 mg, By Mouth, 2 times a day, 0 Refills, Maintenance, 05/19/18 9:58:34 EDT Start Date: 05/19/18 Status: Ordered lisinopril 40 mg oral tablet 1 tablet = 40 mg, By Mouth, Daily, # 90 tablet, 3 Refills, Maintenance, 01/09/17 12:57:25, Tablet Start Date: 01/09/17 Stop Date: 01/04/18 Status: Ordered metFORMIN 500 mg oral tablet, extended release 2 tablet = 1,000 mg, By Mouth, 2 times a day, # 360 tablet, 1 Refills, Maintenance, 03/03/24 10:15:00 EDT, ER Tablet, [facility] #[id number], Partial fill upon patient request if the prescription is for a schedule II opioid drug., 173.8, cm, 02/18... Start Date: 03/03/24 Stop Date: 08/30/24 Status: Ordered metoprolol 50 mg oral tablet, [...] Confirmed Active Coronary artery disease Confirmed Active Diabetes mellitus Confirmed Active Erectile dysfunction Confirmed Active Anticoagulant long-term use Confirmed Active History of - asbestos exposure Confirmed Active Aortic valve replaced Confirmed Active Hypercholesterolemia Confirmed Active Hypertension Confirmed Active 1post op 2MCA left Diagnosis Diagnosis Type Effective Dates Health Status Clinical Service Informant Anticoagulant long-term use Discharge Diagnosis 02/28/24 Cancer of prostate Discharge Diagnosis 02/28/24 Hypercholesterolemia Discharge Diagnosis 02/28/24 Allergic rhinitis Discharge Diagnosis 02/28/24 Coronary artery disease Discharge Diagnosis 02/28/24 Leucocytosis Discharge Diagnosis 03/03/24 Vital Signs Most recent to oldest [Reference Range]: 1 Height 173.8 cm (02/28/24 10:36 AM) Weight 83.3 kg (02/28/24 10:36 AM) Oxygen Saturation [94-100 %] 97 % (02/28/24 10:36 AM) Pulse Rate [55-90 bpm] 78 bpm (02/28/24 10:36 AM) Body Mass Index [18.5-24.99 kg/m2] 27.58 kg/m2 *H* (02/28/24 10:36 AM) Blood Pressure [90-138/55-84 mm Hg] 112/ 62mm Hg (02/28/24 10:36 AM) Mode of Delivery (Oxygen) Room air (02/28/24 10:36 AM) Blood pressure sites Arm, left (02/28/24 10:36 AM) Weight Obtained Via Standing scale (02/28/24 10:36 AM) Social History Social History Type Response Smoking Status Never smoker entered on: 04/03/15 Sex Note * Taylor Barrientos NP: PERFORM Event Display: Patient Education Leaflets Authored Date: [id number] Health Screening Guidelines, Women Ages 50 to 64 ?? 53930 Health Screening Guidelines, Women Ages 50 to 64 Screening tests are bowling to managing your health. A screening test is done to find problems in people who don't have any symptoms. Screening tests are not used to diagnose. They are used to find out if more testing is needed. The goal may be to find a disease early so it can be treated with more success. Or the goal may be to find a disease early so you can make lifestyle changes. Below are guidelines for women ages 50 to 64. Work with your healthcare provider. Make sure you???re up-to-date on what you need. Screening Who needs it How often Type 2 diabetes or prediabetes All women in this age group who are overweight or obese, or had gestational diabetes At??least every 3 years Type 2 diabetes All women with prediabetes Every year Unhealthy alcohol use All women in this age group At routine exams Blood pressure All women in this age group Once a year if your blood pressure is normal. Normal blood pressure is less than 120/80 mm Hg. If your blood pressure is higher than this, follow the advice of your healthcare provider. Breast cancer All women in this age group at average risk. Expert groups vary on their advice so talk with your provider about your specific situation. A mammogram is advised every 1 or 2 years. Talk with your provider about your risk factors. Ask howoften you need one. ??? The U.S. Preventive Services Task Force advises a mammogram every 2 years starting at age 40. ??? The [place] [employer] advises yearly mammograms for women through ages 45 to 54 and mammograms every 1 to 2 years for women ages 55 and older. All women should know how their breasts normally look and feel. They should know the benefits and risks of breast cancer screening with mammograms. Cervical cancer All women in this age group, unless they have had a complete hysterectomy Primary HPV test every 5 years, a co-test (an HPV test with a Pap test) every 5 years, or a Pap test every 3 years. Talk with your healthcare provider about your risks and whether you need screening more often. Chlamydia Women who are sexually active and at higher risk of infection At yearly routine exams Colorectal cancer All women in this age group at average risk Talk with your healthcare provider about which test below is right for you: ??? Flexible sigmoidoscopy every 5 years ??? Colonoscopy every 10 years ??? CT colonography (virtual colonoscopy) every 5 years ??? Yearly fecal occult blood test ??? Yearly fecal immunochemical test(FIT) ??? Stool DNA with FIT test every 3 years If you have a test that is not a colonoscopy and have an abnormal test result, you will need a colonoscopy. You may need to be screened more or less often. This is based on personal or family health history.Talk with your healthcare provider. Depression All adults At routine exams, including, all and women Gonorrhea Sexually active women who are at higher risk of infection At yearly routine exams Hepatitis C All adults At routine exams High cholesterol or triglycerides All adults ??? At least every 5 years up to age 55. ??? Women ages 55 to 65 should be screened every 1 to 2 years. Talk with your healthcare provider about your risk and how often to get screened. HIV All adults At least once between the ages of 13 and 64. Women at ongoing risk should be screened more often. Talk with your healthcare provider about your risk and how often to be screened. Lung cancer All women in this age group who are in fairly good health, are at higher risk for lung cancer, and who: ??? Smoke or used to smoke ??? Have a 20-pack- per year smoking history (1 pack a day for 20 years or 2 packs a day for 10 years) Expert groups vary in their advice. Talk with your healthcare provider. Yearly lung cancer screening with a low-dose CT scan (LDCT). Talk with your healthcare provider. Obesity All adults At routine exams Osteoporosis Women who are postmenopausal Talk with your healthcare provider. Syphilis Women who are at higher risk of infection. Talk with your healthcare provider. Tuberculosis Women who are at higher risk of infection Talk with your healthcare provider. Vision All adults At least every 1 to 2 years or as directed by your healthcare provider. Health counseling Who needs it How often BRCA gene mutation testing for breast and ovarian cancer susceptibility Women who are at higher risk of having this gene mutation. Talk with your healthcare provider. When your risk is known Breast cancer and chemoprevention Women who are at high risk for breast cancer. Talk with your healthcare provider. When your risk is known Diet and exercise Women who are overweight or obese When diagnosed, and then at routine exams Sexually transmitted infection (STI) prevention Women who are at higher risk of infection. Talk with your healthcare provider. At routine exams Use of tobacco and the health effects it can cause All adults Every exam Last Reviewed Date: 2024 ?? [id number] [employer]. All rights reserved. This information is not intended as a substitute for professional medical care. Always follow your healthcare professional's instructions. ?? * Bree Keenan: PERFORM Event Display: Patient Education/Instruction Authored Date: Ambulatory Adult Visit Summary [facility] [address] [place] [id number] Name: JG PASTRANA : 1955?? Visit: 02/28/2024 10:32?? Ambulatory Visit Instructions ?? Your Care Team Primary Care Provider Taylor Barrientos NP? This Visit Provider Taylor Barrientos NP Your Diagnosis Anticoagulant long-term use Cancer of prostate Hypercholesterolemia Allergic rhinitis Coronary artery disease Vitals Signs Pulse Rate: 78 bpm Height: 173.8 cm Systolic Blood Pressure: 112 mm Hg Weight: 83.3 kg Diastolic Blood Pressure: 62 mm Hg Body Mass Index:??27.58 kg/m2??High Oxygen Saturation: 97 % Body surface area: 2.01 What to do next Follow-Up Appointments Follow Up with??Diandra CODY, Rebecca Resendiz When:??03/08/2025 09:20 AM EDT Why: mwv Where: [address] [place] [address]- Future Orders CBC - Routine, Once, 02/28/24 11:02:00 EDT, Order for Today, [facility], Blood?? Comprehensive Metabolic Panel - Routine, Once, 02/28/24 11:02:00 EDT, Order for Today, [facility], Blood?? Lipid Panel - Routine, Once, 02/28/24 11:02:00 EDT, Order for Today, [facility], Blood?? PSA - Routine, Once, 02/28/24 11:02:00 EDT, Order for Today, [facility], Blood?? PSA Free - Routine, Once, 02/28/24 11:07:00 EDT, Order for Today, [facility], Blood?? Medications The list below reflects the information in our records and provided by you today along with any changes made during this visit. Please continue your medications until treatment is completed or stopped by your provider. If this is different from the information you have or there are other questions,please contact the prescribing provider. What How Much When Instructions New Alprostadil (Caverject Impulse 10 mcg injection) 10 Microgram Intradermal Daily Duration: 90 Days Refills: 3 Pickup at [facility] New Scopolamine (scopolamine 1 mg/ 72 hr transdermal film, extended release) 1 patch(es) Topically Every 72 hours Duration: 4 Days Pickup at [facility][id number] Unchanged Amlodipine (amLODIPine 10 mg oral tablet) 1 tab(s) Oral Daily Duration: 90 Days Unchanged apixaban (Eliquis 5 mg oral tablet) 1 tab(s) Oral Twice a day Unchanged Aspirin (aspirin 81 mg oral tablet, chewable) 1 tab(s) Oral Daily Duration: 30 Days Unchanged Atorvastatin (atorvastatin 40 mg oral tablet) 1 tab(s) Oral Daily Unchanged Lisinopril (lisinopril 40 mg oral tablet) 1 tab(s) Oral Daily Duration: 90 Days Unchanged Metoprolol (metoprolol 50 mg oral tablet, extended release) 1 tab(s) Oral Daily Duration: 90 Days Pharmacy Information [facility]: [address] [place], [place] [id number] [phone] [id number] [address] [place], [place] [id number] [phone] Test Performed Below is a partial list of the tests performed during your Visit. You may have had other tests and procedures not included in this list. Please discuss all test results with your provider. CBC?-- Results Pending -- Comprehensive Metabolic Panel?-- Results Pending -- Lipid Panel?-- Results Pending -- PSA?-- Results Pending -- PSA Free?-- Results Pending -- You will be contacted within 72 hours with your results. Medications and Immunizations Administered Medications Given During Visit No medications given during this visit.?? Allergies (NKA means No Known Allergies) Dust Ragweed amiodarone heparin Common Emergency Awareness Tips IS IT A STROKE? Act FAST and Check for these signs: FACE Does the face look uneven? ARM Does one arm drift down? SPEECH Does their speech sound strange? TIME Call at any sign of stroke ?? Heart Attack Signs Chest discomfort: Most heart attacks involve discomfort in the center of the chest and lasts more than a few minutes, or goes away and comes back. It can feel like uncomfortable pressure, squeezing, fullness or pain. Discomfort in upper body: Symptoms can include pain or discomfort in one or both arms, back, neck, jaw or stomach. Shortness of breath: With or without discomfort. Other signs: Breaking out in a cold sweat, nausea, or lightheaded. Remember, MINUTES DO MATTER. If you experience any of these heart attack warning signs, call to get immediate medical attention! ?? Smoking can increase your chances of developing chronic health problems and can cause harmful effects to other family members in your house. If you smoke, you are strongly encouraged to quit. Please call [facility] [employer] at [phone] or 2-579-127CinemaNow ([phone]) or log in to [email or web address] for referrals to smoking cessation programs. ?? The National Suicide Prevention Hotline is available 13/05 if you or someone you know needs to find a reason to keep living. By calling 2-109-828-Razume (5153) you'll be connected to a skilled, trained counselor at a crisis center in your area. [facility] [employer] You can view and manage your care through the patient portal or by using a health care juan of your choosing. [facility] is a website that allows you to securely view your medical information including your hospital discharge summary, office visit summaries, medications and follow-up visits. You can also request appointments, renew medications, and request access to your medical information using a health care juan of your choosing, or just ask a question. You can enroll at [email or web address] or register during your next office visit. [facility], in keeping with [facility] guidance, no longer requires face masks for staff, patientsor visitors in most situations. Similiar to time spent indoors at other locations, there is the chance that you were exposed to repiratory viruses during your time with us (such as flu or COVID-19). If you develop symptoms concerning for a viral respiratory infection, please seek testing (and treatment if indicated) from your medical provider or home test kit. ?? Disclaimer: The information provided is of a general nature and is intended to be used in conjunction with the recommendations and advice of your health care practitioner. Every effort has been made to ensure that the information provided is accurate and complete at the time it is provided to you however, as your needs change, or, as new information becomes available, different or additional instructions may be required. ?? If you have questions, please consult with your primary care provider or pharmacist, as appropriate. This information is not intended to serve as substitution for assessment and evaluation by a qualified health care provider. If you do not have a primary care provider, you may find a [facility] provider by calling [facility] [employer] at [phone]. Patient Care team information Care Team Personnel Name: Taylor Barrientos NP Position: S PCO Associate Professional Member Role: PCP Address: Address: [address] [place] [address], [address] [place] [address]- Name: Nida SYLVESTER, Anabela Position: S RN Supv Member Role: Primary Care Nurse Care Team Related Persons Name: PEDRO PASTRANA Address: home UNKNOWN Name: RAJESH PASTRANA Address: home [address] [place] [phone]
== END 2024-03-08 04:18 | disposition left against medical advice (07) ==
LOC: HO.ED 03-08 04:17
PROVIDERS: Emergency Provider Emergency Medicine; PCP Internal Medicine
DX: R03.1 Nonspecific low blood-pressure reading (principal); I10 Essential (primary) hypertension; R07.9 Chest pain, unspecified; Z79.899 Other long term (current) drug therapy; Z79.01 Long term (current) use of anticoagulants
CPT/HCPCS: 36415; 80053; 85025; 85610; 93005; 99283

== ENCOUNTER → 2024-03-07 21:10 | Outpatient (BNV) | payer MEDICARE, OTHER, SELFPAY | PROVIDERS: Emergency Provider Emergency Medicine; PCP Internal Medicine; Visit Provider Internal Medicine Cardiovascular Disease | DX: R07.9 Chest pain, unspecified (principal) | CPT/HCPCS: 93010 ==